=== PATIENT | female | born 1960 | race African-American/Black ===

== ENCOUNTER 2016-05-05 08:24 | Emergency (ER) | payer MEDICAID, OTHER ==
[~2016-05-05] VITALS: Ht 160 cm; Wt 72.0 kg
[~2016-05-05 08:24] MED LIST: METF500 PO; ZOFR4TAB3 PO
[2016-05-05 08:25] VITALS: BP 156/87; PULSE 85; RESP 15; TEMP 98.1; O2SAT 97
[2016-05-05] MEDS ORDERED: IBUPROFEN 800 MG TAB PO ONE (09:00)
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
[2016-05-05 09:31] LABS: BLOOD, URINE NEG (NEG); COMMENT (UR) CULT NOT INDICATED; CULTURE IF INDICATED CULT NOT INDICATED; GLUCOSE,URINE NEG (NEG); KETONE, URINE NEG (NEG); NITRITE,URINE NEG (NEG); SQUAMOUS EPITHELIAL CELL URINE 1 /hpf (0-5); URINE COLOR YELLOW (YELLW/STRAW)
[2016-05-05] MEDS ORDERED: BENZ100 PO (09:39)
[2016-05-05] MEDS ORDERED: MAGICADU2 SWISH-SPIT (09:39)
[2016-05-05] MEDS ORDERED: IBUP800T23 PO (09:39)
== END 2016-05-05 10:01 | disposition home or self-care (01) ==
LOC: NEPB 08:24
DX: B34.9 Viral infection, unspecified (principal); E11.9 Type 2 diabetes mellitus without complications
CPT/HCPCS: 81001; 87804; 99284

== ENCOUNTER 2016-11-04 13:44 | Emergency (ER) | payer MEDICAID ==
[~2016-11-04] VITALS: Ht 160 cm; Wt 70.0 kg
[~2016-11-04 13:44] MED LIST changes: +BENZ100 PO; +IBUP800T23 PO; +MAGICADU2 SWISH-SPIT; -METF500 PO; -ZOFR4TAB3 PO
[2016-11-04 13:45] VITALS: BP 136/76; PULSE 80; RESP 15; TEMP 98.4; O2SAT 98
== END 2016-11-04 14:28 | disposition left against medical advice (07) ==
LOC: NED 13:44
DX: R51 Headache (principal); Z53.21 Procedure and treatment not carried out due to patient leaving prior to being seen by health care provider
CPT/HCPCS: 99281

== ENCOUNTER 2017-03-12 15:06 | Emergency (ER) | payer OTHER ==
[~2017-03-12 15:06] MED LIST changes: +IBUP1TAB7 PO; -IBUP800T23 PO
[2017-03-12 15:13] VITALS: BP 199/107; PULSE 82; RESP 20; TEMP 98.1; O2SAT 99
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
[2017-03-12] MEDS ORDERED: ACETAMINOPHEN/HYDROcodone 325 MG/5 MG TAB PO ONE (15:45)
[2017-03-12] MEDS ORDERED: NAPROXEN 500 MG TAB PO ONE (15:45)
--- NOTE | 2017-03-12 16:27 | RADRPT ---
EXAM DATE/TIME: 03/12/2017 16:03 [facility] COMPARISON: No previous studies available for comparison. INDICATIONS : Fell today, abrasion left anterior knee, unable to bear weight or ambulate MEDICAL HISTORY : None. SURGICAL HISTORY : None. ENCOUNTER: Initial ACUITY: 1 day PAIN SCORE: 10/10 LOCATION: Left knee FINDINGS: Four view examination of the left knee demonstrates no evidence of fracture or dislocation. Bony min eralization is normal. The articular surfaces are intact. The suprapatellar soft tissues have a nor mal configuration. CONCLUSION: Unremarkable examination of the left knee. Jose Cesar MD on March 12, 2017 at 16:25 Board Certified Radiologist. This report was verified electronically.
--- NOTE | 2017-03-12 16:28 | RADRPT ---
EXAM DATE/TIME: 03/12/2017 15:58 [facility] COMPARISON: No previous studies available for comparison. INDICATIONS : Fell today, left shoulder pain, unable to raise arm MEDICAL HISTORY : None. SURGICAL HISTORY : None. ENCOUNTER: Initial ACUITY: 1 day PAIN SCORE: 10/10 LOCATION: Left shoulder FINDINGS: Multiple view examination of the left shoulder demonstrates no evidence of fracture or dislocation. The glenohumeral and acromioclavicular joints are maintained. There is normal range of motion betwee n internal and external rotation. Bony mineralization is normal. CONCLUSION: Unremarkable examination of the left shoulder. Jose Cesar MD on March 12, 2017 at 16:26 Board Certified Radiologist. This report was verified electronically.
[2017-03-12] MEDS ORDERED: NAPR500 PO (16:37)
== END 2017-03-12 17:17 | disposition home or self-care (01) ==
LOC: NEPK 15:06
DX: S83.92XA Sprain of unspecified site of left knee, initial encounter (principal); S40.012A Contusion of left shoulder, initial encounter; S80.212A Abrasion, left knee, initial encounter; W19.XXXA Unspecified fall, initial encounter; Y93.02 Activity, running
CPT/HCPCS: 73030; 73564; 99284; E0113; L1830